=== PATIENT | male | born 1980 | race Caucasian/White ===

== ENCOUNTER 2016-09-02 18:05 | Emergency (ER) | payer OTHER ==
[2016-09-02 18:35] VITALS: BP 143/87; PULSE 72; RESP 16; TEMP 98.5; O2SAT 100
--- NOTE | 2016-09-02 20:09 | ED PDOC ---
Upper Extremity Pain/Injury Time Seen by Provider: 09/02/16 19:58 Chief Complaint (Nursing): Upper Extremity Problem/Injury Chief Complaint (Provider): left wrist injury History Per: Patient History/Exam Limitations: no limitations Onset/Duration Of Symptoms: Days (3) Current Symptoms Are (Timing): Still Present Additional History Per: Patient Additional Complaint(s): 35 y/o male presents for eval of left wrist injury x 3 days. Patient states he fell and used left hand to break fall, followed up with PMD today for persistent pain/swelling and was sent for outpatient xray. Patient was told he has wrist fracture and advised to come to ED. Patient admits to improvement of pain/swelling with ibuprofen and ice application. Denies numbness/weakness left upper extremity, limitation of movement. Past Medical History Reviewed: Historical Data, Nursing Documentation, Vital Signs Vital Signs: Last Vital Signs Temp 98.5 F 09/02/16 18:30 Pulse 72 09/02/16 18:30 Resp 16 09/02/16 18:30 BP 143/87 09/02/16 18:30 Pulse Ox 100 09/02/16 18:30 - Medical History PMH: No Chronic Diseases - Surgical History Surgical History: No Surg Hx - Family History Family History: States: Unknown Family Hx - Living Arrangements Living Arrangements: With Family - Immunization History Hx Tetanus Toxoid Vaccination: No Hx Influenza Vaccination: No Hx Pneumococcal Vaccination: No - Allergies Allergies/Adverse Reactions: Allergies Allergy/AdvReac Type Severity Reaction Status Date / Time No Known Allergies Allergy Verified 09/02/16 18:30 Review of Systems ROS Statement: Except As Marked, All Systems Reviewed And Found Negative Musculoskeletal: Positive for: Hand Pain (left hand) Physical Exam - Reviewed Nursing Documentation Reviewed: Yes Vital Signs Reviewed: Yes - Physical Exam Appears: Positive for: Well, Non-toxic, No Acute Distress Pulses-Radial (L): 2+ Pulses-Radial (R): 2+ Extremity: Positive for: Normal ROM, Tenderness (left snuff box, mild), Capillary Refill (<2 sec b/l UE). Negative for: Deformity, Swelling Neurologic/Psych: Positive for: Alert, Oriented. Negative for: Motor/Sensory Deficits - ECG O2 Sat by Pulse Oximetry: 100 - Other Rad xray left wrist X-Ray: Viewed By Me X-Ray Interpretation: left scaphoid fracture - Progress ED Course And Treament: xray ordered Case discussed with Dr. Nguyen, hand specialist on-call, who recommends thumb spica, copy of xray and f/up in office. Patient educated on findings, placed in thumb spica splint/sling. Advised follow up hand specialist. Ibuprofen Q6 PRN. RICE. Return to ED for worsening/concerning symptoms. Disposition - Clinical Impression Clinical Impression: Fracture of scaphoid of left wrist - Patient ED Disposition Is Patient to be Admitted: No Counseled Patient/Family Regarding: Studies Performed, Diagnosis, Need For Followup - Disposition Referrals: Manjit Nguyen MD [Staff Provider] - Disposition: Routine/Home Disposition Time: 21:11 Condition: STABLE Instructions: Scaphoid Fracture (ED)
--- NOTE | 2016-09-03 15:20 | RAD ---
PROCEDURE: Left Wrist Radiographs. HISTORY: fall COMPARISON: None. FINDINGS: BONES: Relatively linear but somewhat ovoid lucency seen the neck of the navicular bone suspicious for a benign cyst. This seen only in the frontal view and not the oblique or lateral views. consider follow-up mri for greater characterization. Remaining carpal bones are otherwise unremarkable and overall density. No dislocation subluxation is evident and local soft tissues appear diffusely unremarkable. JOINTS: Normal. No dislocation. SOFT TISSUES: Normal. OTHER FINDINGS: None. IMPRESSION: Probable nonaggressive cyst at the neck of the navicular bone left wrist. No dislocation is appreciated. A fracture is not completely excluded and follow-up MRI is advised for greater characterization. .
== END 2016-09-02 22:04 | disposition home or self-care (01) ==
LOC: H.ER 18:05
DX: S62.002A Unspecified fracture of navicular [scaphoid] bone of left wrist, initial encounter for closed fracture (principal); W19.XXXA Unspecified fall, initial encounter; Y92.89 Other specified places as the place of occurrence of the external cause